=== PATIENT | male | born 1940 | race Two or more races ===

== ENCOUNTER 2017-03-18 17:10 | Inpatient (IN) | payer OTHER ==
[~2017-03-18] VITALS: Ht 162.6 cm; Wt 99.8 kg
[2017-03-18] VITALS (8 sets, daily range): BP systolic 97–156; BP diastolic 45–84
[2017-03-18] MEDS ORDERED: Azithromycin Inj IV ONE (17:19)
[2017-03-18] MEDS: Albuterol ud Inhalation HHN SCH ×3 (17:22→17:56)
[2017-03-18] MEDS ORDERED: ZOSYN 3.373.375 GM/1 IVPB (17:25)
[2017-03-18] MEDS ORDERED: ACETAMINOPHEN325 M1 ORAL (17:25)
[2017-03-18] MEDS ORDERED: DUONEB 0.5-3(2.53 ML HHN (17:25)
[2017-03-18] MEDS ORDERED: Vancomycin 1.5gm/D5W 300ml 325 ML IVPB ONE (17:30)
[2017-03-18] MEDS ORDERED: Ipratropium 0.02% Inh Soln 2.5ml UD HHN ONE (17:30)
[2017-03-18] MEDS ORDERED: cefTRIAXone 2 GM in NS 110 ML IV ONE (17:30)
[2017-03-18] MEDS ORDERED: Azithromycin 500 MG in NS 275 ML IV ONE (17:30)
[2017-03-18] MEDS ORDERED: Solu-MEDROL 125mg Inj IVP ONE (17:30)
--- NOTE | 2017-03-18 17:51 | Emergency Room Report ---
History of Present Illness General Chief Complaint: Dyspnea/Respdistress Source: Patient, EMS Present Illness HPI The patient presents with severe dyspnea. Paramedics were called. Patient has a history of asthma and COPD. He started breathing treatments and they heard wheezing in all lung fernández. He was begun on Zosyn this morning for treatment of pneumonia. Recent admission for dyspnea. Family was told consideration of pneumonia. No sore throat, NVD, dysuria, rashes. Minimal chest pain 2/10 R anterior chest. Denies calf tenderness. Apparently has been intubated once before. Allergies: Coded Allergies: No Known Allergies (Unverified , 03/18/17) Patient History Past Medical History: see triage record Social History: Denies: smoking Social History Narrative and with other family members Nursing Documentation-PMH Hx Asthma: Yes Hx COPD: Yes Hx Gastrointestinal Problems: Yes - GERD Review of Systems All Other Systems: negative except mentioned in HPI Physical Exam Vital Signs Date Time Temp Pulse Resp B/P Pulse Ox O2 Delivery O2 Flow Rate FiO2 03/18/17 17:06 97.0 102 22 156/84 94 Simple Mask 8.0 03/18/17 17:17 60 Sp02 EP Interpretation: reviewed, abnormal - interpreted as low by me General Appearance: alert, GCS 15, mild distress Head: normocephalic Eyes: bilateral eye PERRL, bilateral eye normal inspection ENT: moist mucus membranes Neck: supple Respiratory: wheezing - tight, expiration, inspiration Cardiovascular #1: regular rate, rhythm Cardiovascular #2: 2+ radial (R) Gastrointestinal: normal inspection, normal bowel sounds, non tender, no mass, non-distended Musculoskeletal: back normal, gait/station normal, normal range of motion Neurologic: alert, oriented x3, motor strength/tone normal, DTRs symmetric, sensory intact, cerebellar normal, normal gait Psychiatric: anxious Skin: normal inspection, warm/dry Procedures Critical Care Time Critical Care Time Total Critical Care Time: 30 min bedside evaluation and treatment excludes procedures (EKG). Reason for critical care: repeated evaluations for respiratory distress Possible complications: hypotension, hypertension, NE, shock, arrhythmias, metabolic acidosis, end organ damage, respiratory failure. Interventions: BIPAP, albuterol, solumedrol Course: Patient with resp distress with slight improvement in field with albuterol. Start BIPAP and breathing treatments. Evaluation for sepsis and start antibiotics. No fluid boluses. Improved on BIPAP and tx. Attempt off BIPAP not successful. ABG with hypoxia and mixed acidosis. Discussed with family. Discussed with admitting MD. Returned to BIPAP with improvement. Consultations: nursing staff, EMS, family Performed by: Dr. Morrell Tolerated well condition = serious Medical Decision Making Diagnostic Impression: Primary Impression: Respiratory distress Additional Impressions: Bilateral pulmonary infiltrates on chest x-ray Bronchospasm Mixed acidosis Hypoxia ER Course The patient presents with severe dyspnea. Differential includes acute myocardial infarction, CHF, COPD, pneumonia, exacerbation of asthma. Apparently analyzer began this morning. Evaluation here will include EKG, chest x-ray and labs. The patient is in respiratory distress and has severe bronchospasm. This was aggressively treated with albuterol Atrovent and Solu- Medrol. In addition to that I will receive triple antibiotics. His vital signs are stable and therefore the given IV hydration but not excessive use. The patient is improved with treatment however still has rales. Chest x-ray reveals diffuse significant interstitial infiltrates. Of significance is normal BNP. Will attempt off of BIPAP. ABG off BIPAP suggests need for continued pressure support. Consideration of intubation, but patient greatly improved. Patient improved. Admit [facility] Dr. Womack. Laboratory Tests Test 03/18/17 17:15 03/18/17 18:00 03/18/17 19:32 White Blood Count 20.3 K/UL (4.8-10.8) H Red Blood Count 3.76 M/UL (4.70-6.10) L Hemoglobin 13.1 G/DL (14.2-18.0) L Hematocrit 36.6 % (42.0-52.0) L Mean Corpuscular Volume 97 FL (80-99) Mean Corpuscular Hemoglobin 34.7 PG (27.0-31.0) H Mean Corpuscular Hemoglobin Concent 35.7 G/DL (32.0-36.0) Red Cell Distribution Width 12.1 % (11.6-14.8) Platelet Count 167 K/UL (150-450) Mean Platelet Volume 6.7 FL (6.5-10.1) Neutrophils (%) (Auto) % (45.0-75.0) Lymphocytes (%) (Auto) % (20.0-45.0) Monocytes (%) (Auto) % (1.0-10.0) Eosinophils (%) (Auto) % (0.0-3.0) Basophils (%) (Auto) % (0.0-2.0) Differential Total Cells Counted 100 Neutrophils % (Manual) 82 % (45-75) H Lymphocytes % (Manual) 4 % (20-45) L Monocytes % (Manual) 0 % (1-10) L Eosinophils % (Manual) 1 % (0-3) Basophils % (Manual) 0 % (0-2) Metamyelocytes % 1 % (0-0) H Myelocytes % 1 % (0-0) H Band Neutrophils 11 % (0-8) H Platelet Estimate Adequate Platelet Morphology Normal Red Blood Cell Morphology Normal Prothrombin Time 9.8 SEC (9.30-11.50) Prothrombin Time INR 1.0 (0.9-1.1) PTT 25 SEC (23-33) Sodium Level 134 mEQ/L (135-145) L Potassium Level 4.9 mEQ/L (3.4-4.9) Chloride Level 93 mEQ/L (98-107) L Carbon Dioxide Level 25 mEQ/L (20-30) Anion Gap 16 (5-15) H Blood Urea Nitrogen 14 mg/dL (7-23) Creatinine 1.0 mg/dL (0.7-1.2) Estimate Glomerular Filtration Rate mL/min (>60) Glucose Level 215 mg/dL (74-106) H Lactic Acid Level 1.80 mmol/L (0.66-2.22) Calcium Level 8.4 mg/dL (8.6-10.2) L Magnesium Level 2.0 mg/dL (1.7-2.5) Total Bilirubin 0.5 mg/dL (0.0-1.2) Aspartate Amino Transferase (AST) 29 U/L (5-40) Alanine Aminotransferase (ALT) 32 U/L (3-41) Alkaline Phosphatase 127 U/L (40-129) Total Creatine Kinase 34 U/L (38-174) L Troponin I < 0.30 ng/mL (<=0.30) Pro-B-Type Natriuretic Peptide 210 pg/mL (0-450) Total Protein 5.8 g/dL (6.6-8.7) L Albumin 2.2 g/dL (3.5-5.2) L Globulin 3.6 g/dL Albumin/Globulin Ratio 0.6 (1.0-2.7) L Urine Color Pale yellow Urine Appearance Clear Urine pH 7 (4.5-8.0) Urine Specific [place] 1.010 (1.005-1.035) Urine Protein 1+ (NEGATIVE) H Urine Glucose (UA) 2+ (NEGATIVE) H Urine Ketones Negative (NEGATIVE) Urine Occult Blood Negative (NEGATIVE) Urine Nitrite Negative (NEGATIVE) Urine Bilirubin Negative (NEGATIVE) Urine Urobilinogen Normal MG/DL (0.0-1.0) Urine Leukocyte Esterase Negative (NEGATIVE) Urine RBC 0 /HPF (0 - 0) Urine WBC 0-2 /HPF (0 - 0) Urine Squamous Epithelial Cells None /LPF (NONE/OCC) Urine Bacteria None /HPF (NONE) Arterial Blood pH 7.345 (7.350-7.450) Arterial Blood Partial Pressure CO2 46.5 mmHg (35.0-45.0) H Arterial Blood Partial Pressure O2 64.0 mmHg (75.0-100.0) L Arterial Blood HCO3 24.8 mmol/L (22.0-26.0) Arterial Blood Oxygen Saturation 81.0 % (92.0-98.0) L Arterial Blood Base Excess -1.2 Jarad Test Positive EKG Diagnostic Results Rate: tachycardiac ST Segments: no acute changes Rhythm Strip Diag. Results EP Interpretation: yes Rhythm: no PVC's, no ectopy, other - st Chest X-Ray Diagnostic Results EP Interpretation: Yes Findings: no pneumothorax, other - bilateral infiltrates Number of Views: 1 Last Vital Signs Date Time Temp Pulse Resp B/P Pulse Ox O2 Delivery O2 Flow Rate FiO2 03/18/17 21:11 102 28 95 Facial 70 03/18/17 21:00 154/59 03/18/17 20:24 97.0 03/18/17 19:30 10.0 Status: improved Disposition: ADMITTED INPATIENT Condition: Critical Clarence Morrell M.D. Mar 18, 2017 17:51
[2017-03-18 17:58] LABS: MEAN CORPUSCULAR HEMOGLOBIN 34.7 PG (27.0-31.0); MEAN CORPUSCULAR HGB CONC 35.7 G/DL (32.0-36.0); MEAN CORPUSCULAR VOLUME 97 FL (80-99); MEAN PLATELET VOLUME 6.7 FL (6.5-10.1); PLATELET COUNT 167 K/UL (150-450); RED BLOOD COUNT 3.76 M/UL (4.70-6.10); RED CELL DISTRIBUTION WIDTH 12.1 % (11.6-14.8); WHITE BLOOD COUNT 20.3 K/UL (4.8-10.8)
[2017-03-18 18:04] LABS: PROTHROMBIN TIME 9.8 SEC (9.30-11.50)
[2017-03-18 18:12] LABS: TROPONIN I < 0.30 ng/mL (<=0.30)
[2017-03-18 18:15] LABS: ALANINE AMINOTRANSFERASE 32 U/L (3-41); ALBUMIN/GLOBULIN RATIO 0.6 (1.0-2.7); ANION GAP 16 (5-15); ASPARTATE AMINO TRANSFERASE 29 U/L (5-40); CALCIUM 8.4 mg/dL (8.6-10.2); CARBON DIOXIDE 25 mEQ/L (20-30); CHLORIDE 93 mEQ/L (98-107); HEMOLYSIS 7; POTASSIUM 4.9 mEQ/L (3.4-4.9); SODIUM 134 mEQ/L (135-145); TOTAL PROTEIN 5.8 g/dL (6.6-8.7)
[2017-03-18 18:15] LABS: APPEARANCE,URINE CLEAR; KETONES,URINE NEGATIVE (NEGATIVE); LEUKOCYTE ESTERASE ,URINE NEGATIVE (NEGATIVE); NITRITE,URINE NEGATIVE (NEGATIVE); PH,URINE 7 (4.5-8.0); PROTEIN,URINE 1+ (NEGATIVE); UROBILINOGEN,URINE NORMAL MG/DL (0.0-1.0)
[2017-03-18 18:22] LABS: RBC,URINE 0 /HPF (0 - 0); WBC,URINE 0-2 /HPF (0 - 0)
[2017-03-18 18:32] LABS: BAND NEUTROPHILS % (MANUAL) 11 % (0-8); BASOPHILS % (MANUAL) 0 % (0-2); EOSINOPHILS % (MANUAL) 1 % (0-3); LYMPHOCYTES % (MANUAL) 4 % (20-45); METAMYELOCYTES % 1 % (0-0); MYELOCYTES % 1 % (0-0); NEUTROPHILS % (MANUAL) 82 % (45-75); PLATELET ESTIMATE ADEQUATE; PLATELET MORPHOLOGY NORMAL; TOTAL CELLS COUNTED 100
[2017-03-18] MEDS ORDERED: fentaNYL 100 mcg/2 mL IV ONE (19:45)
[2017-03-18 20:12] LABS: ABG BASE EXCESS -1.2; ABG PCO2 46.5 mmHg (35.0-45.0)
[2017-03-18 20:13] LABS: ABG ALLEN TEST POSITIVE
[2017-03-18] MEDS ORDERED: Nitroglycerin Subl 0.4mg tab (Bottle Of 25) SL PRN (20:30)
[2017-03-18] MEDS ORDERED: Morphine Sulfate 2mg/ml Inj IVP PRN (20:30)
[2017-03-18] MEDS ORDERED: Promethazine/Codeine 5ml UD ORAL PRN (20:30)
[2017-03-18] MEDS ORDERED: LORazepam Inj 2mg/ml 1ml IV PRN (20:30)
[2017-03-18] MEDS ORDERED: Ketorolac 30mg Inj IV PRN (20:30)
[2017-03-18] MEDS ORDERED: DuoNeb 0.5-3(2.5)mg/3ml neb HHN PRN (20:30)
[2017-03-18] MEDS: Heparin 5000 units/ml inj SUBQ SCH (21:22)
[2017-03-18] MEDS: Theophylline ER 100mg ORAL SCH (21:35)
[2017-03-18] MEDS ORDERED: Zosyn 3.375gm inj ONE (21:59)
[2017-03-18] MEDS ORDERED: Piperacillin/Tazobactam 2.25 GM in D5W 55 ML IV SCH (22:00)
[2017-03-18] MEDS: Zosyn 3.375gm q8h **Extended infusion IVPB SCH ×2 (22:13)
[2017-03-19] MEDS: Solu-MEDROL 125mg Inj IV SCH ×6 (01:14→23:18)
[2017-03-19 04:00] VITALS: BP 115/67
[2017-03-19] MEDS ORDERED: Zosyn 3.375gm inj ONE (05:29)
[2017-03-19] MEDS: Zosyn 3.375gm q8h **Extended infusion IVPB SCH ×6 (05:42→21:30)
[2017-03-19 08:00] VITALS: BP 129/77
--- NOTE | 2017-03-19 08:18 | History and Physical ---
History of Present Illness General Date patient seen: Mar 19, 2017 Time patient seen: 08:00 Reason for Hospitalization: Dyspnea/Respdistress Present Illness HPI 76 y/old patient with hx of COPD/asthma BIBA with severe dyspnea. Patient was wheezing He was started on breathing treatments in route He was begun on Zosyn this morning for treatment of pneumonia. Recent admission for dyspnea. patient with hx of heavy smoking for 20 yrs 1 pk/day admits to chest tightness, cough, minimally productive with greenish expectorate denies fevers, chills no sore throat, no n/v/d, no dysuria, no rashes. Minimal chest pain 2/10 R anterior chest. Denied calf tenderness. Hx of intubation in the past x1 Workup in ED revealed leukocytosis-20.3 patient was placed on VM 45% and ABG done after being on VM for 30 min- with evidence of severe hypoxemia and mild hypercapnia patient was placed on BiPAP with some improvement, CXR with bilateral infiltrates troponin negative ECG -SR, no ischemic changes started on loading dose of steroids, bronchodilator therapy via nebulizer provided patient was admitted to [facility] for further management Allergies: Coded Allergies: No Known Allergies (Unverified , 03/18/17) Medication History Scheduled Spnbkzhkreob-Qvmx-Xjwmtdme,Iso (Zosyn 3.375 Gm Pre Mix-Bag), 3.375 GM IVPB EVERY 6 HOURS, (Reported) Scheduled PRN Acetaminophen* (Acetaminophen 325MG Tablet*), 650 MG ORAL Q4H PRN for Fever/ Headache/Mild Pain, (Reported) Ipratropium/Albuterol Sulfate (DuoNeb 0.5-3(2.5)mg/3ml), 3 ML HHN EVERY 4 HOURS PRN for Shortness of Breath, (Reported) Patient History History Provided By: Patient Healthcare decision maker Resuscitation status Full Code Advanced Directive on File No Past Medical/Surgical History Past Medical/Surgical History: (1) Asthma (2) COPD (chronic obstructive pulmonary disease) (3) HTN (hypertension) Review of Systems Constitutional: Reports: weakness Eye: Reports: no symptoms ENT: Reports: no symptoms Respiratory: Reports: see HPI Cardiovascular: Reports: no symptoms, other - hx of HTN Gastrointestinal: Reports: no symptoms Genitourinary: Reports: no symptoms Musculoskeletal: Reports: no symptoms Skin: Reports: no symptoms Psychiatric: Reports: no symptoms Neurological: Reports: no symptoms Endocrine: Reports: no symptoms Hematologic/Lymphatic: Reports: no symptoms Physical Exam General Appearance: alert, obese, other - mild respiratory distress Lines, tubes and drains: peripheral HEENT: normocephalic, atraumatic, anicteric, mucous membranes moist, other - BiPAP on 10/24 80% Respiratory/Chest: no accessory muscle use, respiratory distress - mild , decreased breath sounds - throughout all lung fernández , expiratory wheezing - few scattered Cardiovascular/Chest: normal rate, regular rhythm - SR on tele Abdomen: normal bowel sounds, non tender - obese, soft Extremities: normal range of motion, non-tender, no calf tenderness, normal capillary refill Skin Exam: normal pigmentation, warm/dry Neurologic: no motor/sensory deficits, alert, oriented x 3, responsive Musculoskeletal: normal muscle bulk Last 24 Hour Vital Signs Date Time Temp Pulse Resp B/P Pulse Ox O2 Delivery O2 Flow Rate FiO2 03/19/17 05:05 88 19 95 Facial 80 03/19/17 04:00 84 03/19/17 04:00 97.0 80 18 115/67 100 Bi-pap 80 03/19/17 04:00 80 03/19/17 03:30 86 16 94 Full Face 80 03/19/17 01:30 90 15 97 Facial 80 03/19/17 01:00 10.0 90 03/19/17 00:37 92 03/18/17 23:30 92 21 99 Facial 90 03/18/17 23:27 97.0 89 20 106/51 100 Bi-pap 10.0 60 03/18/17 23:00 60 03/18/17 23:00 89 20 106/51 100 Bi-pap 60 03/18/17 22:00 88 18 98/45 100 Bi-pap 60 03/18/17 21:11 102 28 95 Facial 70 03/18/17 21:00 94 21 154/59 100 Bi-pap 60 03/18/17 20:30 98 21 101/56 99 Bi-pap 60 03/18/17 20:24 97.0 03/18/17 20:00 97.9 100 23 97/67 95 Bi-pap 60 03/18/17 19:30 93 10.0 45 03/18/17 19:30 93 10.0 45 03/18/17 19:00 13.0 03/18/17 19:00 105 34 106/64 93 Simple Mask 13.0 03/18/17 18:32 114 30 108/65 96 Bi-pap 60 03/18/17 18:05 113 28 98 Bi-pap 60 03/18/17 17:50 60 03/18/17 17:49 115 29 96 Bi-pap 60 03/18/17 17:49 116 29 96 Bi-pap 60 03/18/17 17:34 115 25 96 Bi-pap 60 03/18/17 17:34 115 25 96 Bi-pap 60 03/18/17 17:33 97.0 117 28 156/84 94 Bi-pap 60 03/18/17 17:33 117 28 Bi-pap 60 03/18/17 17:19 117 28 94 Bi-pap 60 03/18/17 17:18 118 28 Bi-pap 60 03/18/17 17:17 117 28 94 Facial 60 03/18/17 17:06 97.0 102 22 156/84 94 Simple Mask 8.0 Intake and Output 03/18/17 03/19/17 19:00 07:00 Intake Total 385 ml 470.5 ml Output Total 100 ml 600 ml Balance 285 ml -129.5 ml Intake IV Total 385 ml 470.5 ml Output Urine Total 100 ml 600 ml Laboratory Tests Test 03/18/17 17:15 03/18/17 18:00 03/18/17 19:32 White Blood Count 20.3 K/UL (4.8-10.8) H Red Blood Count 3.76 M/UL (4.70-6.10) L Hemoglobin 13.1 G/DL (14.2-18.0) L Hematocrit 36.6 % (42.0-52.0) L Mean Corpuscular Volume 97 FL (80-99) Mean Corpuscular Hemoglobin 34.7 PG (27.0-31.0) H Mean Corpuscular Hemoglobin Concent 35.7 G/DL (32.0-36.0) Red Cell Distribution Width 12.1 % (11.6-14.8) Platelet Count 167 K/UL (150-450) Mean Platelet Volume 6.7 FL (6.5-10.1) Neutrophils (%) (Auto) % (45.0-75.0) Lymphocytes (%) (Auto) % (20.0-45.0) Monocytes (%) (Auto) % (1.0-10.0) Eosinophils (%) (Auto) % (0.0-3.0) Basophils (%) (Auto) % (0.0-2.0) Differential Total Cells Counted 100 Neutrophils % (Manual) 82 % (45-75) H Lymphocytes % (Manual) 4 % (20-45) L Monocytes % (Manual) 0 % (1-10) L Eosinophils % (Manual) 1 % (0-3) Basophils % (Manual) 0 % (0-2) Metamyelocytes % 1 % (0-0) H Myelocytes % 1 % (0-0) H Band Neutrophils 11 % (0-8) H Platelet Estimate Adequate Platelet Morphology Normal Red Blood Cell Morphology Normal Prothrombin Time 9.8 SEC (9.30-11.50) Prothromb Time International Ratio 1.0 (0.9-1.1) Activated Partial Thromboplast Time 25 SEC (23-33) Sodium Level 134 mEQ/L (135-145) L Potassium Level 4.9 mEQ/L (3.4-4.9) Chloride Level 93 mEQ/L (98-107) L Carbon Dioxide Level 25 mEQ/L (20-30) Anion Gap 16 (5-15) H Blood Urea Nitrogen 14 mg/dL (7-23) Creatinine 1.0 mg/dL (0.7-1.2) Estimat Glomerular Filtration Rate mL/min (>60) Glucose Level 215 mg/dL (74-106) H Lactic Acid Level 1.80 mmol/L (0.66-2.22) Calcium Level 8.4 mg/dL (8.6-10.2) L Magnesium Level 2.0 mg/dL (1.7-2.5) Total Bilirubin 0.5 mg/dL (0.0-1.2) Aspartate Amino Transf (AST/SGOT) 29 U/L (5-40) Alanine Aminotransferase (ALT/SGPT) 32 U/L (3-41) Alkaline Phosphatase 127 U/L (40-129) Total Creatine Kinase 34 U/L (38-174) L Troponin I < 0.30 ng/mL (<=0.30) Pro-B-Type Natriuretic Peptide 210 pg/mL (0-450) Total Protein 5.8 g/dL (6.6-8.7) L Albumin 2.2 g/dL (3.5-5.2) L Globulin 3.6 g/dL Albumin/Globulin Ratio 0.6 (1.0-2.7) L Urine Color Pale yellow Urine Appearance Clear Urine pH 7 (4.5-8.0) Urine Specific [place] 1.010 (1.005-1.035) Urine Protein 1+ (NEGATIVE) H Urine Glucose (UA) 2+ (NEGATIVE) H Urine Ketones Negative (NEGATIVE) Urine Occult Blood Negative (NEGATIVE) Urine Nitrite Negative (NEGATIVE) Urine Bilirubin Negative (NEGATIVE) Urine Urobilinogen Normal MG/DL (0.0-1.0) Urine Leukocyte Esterase Negative (NEGATIVE) Urine RBC 0 /HPF (0 - 0) Urine WBC 0-2 /HPF (0 - 0) Urine Squamous Epithelial Cells None /LPF (NONE/OCC) Urine Bacteria None /HPF (NONE) Arterial Blood pH 7.345 (7.350-7.450) Arterial Blood Partial Pressure CO2 46.5 mmHg (35.0-45.0) H Arterial Blood Partial Pressure O2 64.0 mmHg (75.0-100.0) L Arterial Blood HCO3 24.8 mmol/L (22.0-26.0) Arterial Blood Oxygen Saturation 81.0 % (92.0-98.0) L Arterial Blood Base Excess -1.2 Jarad Test Positive Height (Feet): 5 Height (Inches): 4.00 Weight (Pounds): 220 Medications Current Medications Medications (Trade) Dose Ordered Sig/Gabe Route PRN Reason Start Time Stop Time Status Last Admin Dose Admin Albuterol/ Ipratropium (DuoNeb 0.5-3(2.5)mg/3ml) 3 ml Q4H PRN HHN DYSPNEA 03/18/17 20:30 03/23/17 20:29 Dextrose STAT PRN IV Hypoglycemia 03/18/17 20:30 04/17/17 20:29 Heparin Sodium (Porcine) (Heparin 5000 units/ml) 5,000 units EVERY 12 HOURS SUBQ 03/18/17 21:00 04/17/17 20:59 03/18/17 21:22 Ketorolac Tromethamine (Toradol 30mg) 30 mg Q8H PRN IV Moderate Pain (Pain Scale 4-6) 03/18/17 20:30 03/23/17 20:29 Lorazepam (Ativan 2mg/ml 1ml) 0.5 mg Q4H PRN IV For Anxiety 03/18/17 20:30 03/25/17 20:29 Methylprednisolone Sodium Succinate (Solu-MEDROL) 60 mg EVERY 6 HOURS IV 03/19/17 00:00 04/18/17 00:00 03/19/17 05:43 Morphine Sulfate (Morphine Sulfate) 2 mg Q4H PRN IVP Severe Pain (Pain Scale 7-10) 03/18/17 20:30 03/25/17 20:29 Nitroglycerin (Ntg) 0.4 mg Q5M X 3 DOSES PRN SL Prn Chest Pain 03/18/17 20:30 04/17/17 20:29 Ondansetron HCl (Zofran) 4 mg Q6H PRN IVP Nausea & Vomiting 03/18/17 20:30 04/17/17 20:29 Piperacillin Sod/ Tazobactam Sod/ Dextrose (Zosyn/D5W) 110 ml @ 27.5 mls/hr EVERY 8 HOURS IVPB 03/18/17 22:00 03/23/17 21:59 03/19/17 05:42 Promethazine HCl/ Codeine (Phenergan with Codeine) 5 ml Q6H PRN ORAL For Cough 03/18/17 20:30 04/17/17 20:29 Temazepam (Restoril) 15 mg HSPRN PRN ORAL Insomnia 03/18/17 21:00 03/25/17 20:59 Theophylline (Dale-Dur) 100 mg EVERY 12 HOURS ORAL 03/18/17 21:00 04/17/17 20:59 03/18/17 21:35 Assessment/Plan Assessment/Plan ASSESSMENT acute hypoxemic respiratory failure requiring BiPAP acute COPD exacerbation likely PNA hx of COPD/asthma hx of tobacco abuse HTN hyperglycemia PLAN OF CARE [facility] close monitoring may need intubation if no improvement stat ABG and titrate BiPAP settings as needed Fup with CXR IV steroids empiric abx sputum cx Theophylline antitussive prn bronchodilator therapy via [facility] ATC and prn addiction counselor to continue abstinence from smoking DVT prophylaxis currently normotensive and off any anti HTN meds, monitor BP closely check HgA1c, likely 2 to steroids vs real diabetes, may need coverage condition serious keep in [facility] case discussed and evaluated by supervising physician Mumtaz ([facility]),Jennifer MANN Mar 19, 2017 08:18
--- NOTE | 2017-03-19 09:21 | Infectious Diseases Prog Note ---
Assessment/Plan Assessment/Plan ID consult dictated # [id number] Subjective Allergies: Coded Allergies: No Known Allergies (Unverified , 03/18/17) Objective Vital Signs Last 24 Hour Vital Signs Date Time Temp Pulse Resp B/P Pulse Ox O2 Delivery O2 Flow Rate FiO2 03/19/17 09:18 88 28 96 Facial 80 03/19/17 06:39 88 28 96 Facial 80 03/19/17 05:05 88 19 95 Facial 80 03/19/17 04:00 84 03/19/17 04:00 97.0 80 18 115/67 100 Bi-pap 80 03/19/17 04:00 80 03/19/17 03:30 86 16 94 Full Face 80 03/19/17 01:30 90 15 97 Facial 80 03/19/17 01:00 10.0 90 03/19/17 00:37 92 03/18/17 23:30 92 21 99 Facial 90 03/18/17 23:27 97.0 89 20 106/51 100 Bi-pap 10.0 60 03/18/17 23:00 60 03/18/17 23:00 89 20 106/51 100 Bi-pap 60 03/18/17 22:00 88 18 98/45 100 Bi-pap 60 03/18/17 21:11 102 28 95 Facial 70 03/18/17 21:00 94 21 154/59 100 Bi-pap 60 03/18/17 20:30 98 21 101/56 99 Bi-pap 60 03/18/17 20:24 97.0 03/18/17 20:00 97.9 100 23 97/67 95 Bi-pap 60 03/18/17 19:30 93 10.0 45 03/18/17 19:30 93 10.0 45 03/18/17 19:00 13.0 03/18/17 19:00 105 34 106/64 93 Simple Mask 13.0 03/18/17 18:32 114 30 108/65 96 Bi-pap 60 03/18/17 18:05 113 28 98 Bi-pap 60 03/18/17 17:50 60 03/18/17 17:49 115 29 96 Bi-pap 60 03/18/17 17:49 116 29 96 Bi-pap 60 03/18/17 17:34 115 25 96 Bi-pap 60 03/18/17 17:34 115 25 96 Bi-pap 60 03/18/17 17:33 97.0 117 28 156/84 94 Bi-pap 60 03/18/17 17:33 117 28 Bi-pap 60 03/18/17 17:19 117 28 94 Bi-pap 60 03/18/17 17:18 118 28 Bi-pap 60 03/18/17 17:17 117 28 94 Facial 60 03/18/17 17:06 97.0 102 22 156/84 94 Simple Mask 8.0 Height (Feet): 5 Height (Inches): 4.00 Weight (Pounds): 220 Laboratory Tests Test 03/18/17 17:15 03/18/17 18:00 03/18/17 19:32 White Blood Count 20.3 K/UL (4.8-10.8) H Red Blood Count 3.76 M/UL (4.70-6.10) L Hemoglobin 13.1 G/DL (14.2-18.0) L Hematocrit 36.6 % (42.0-52.0) L Mean Corpuscular Volume 97 FL (80-99) Mean Corpuscular Hemoglobin 34.7 PG (27.0-31.0) H Mean Corpuscular Hemoglobin Concent 35.7 G/DL (32.0-36.0) Red Cell Distribution Width 12.1 % (11.6-14.8) Platelet Count 167 K/UL (150-450) Mean Platelet Volume 6.7 FL (6.5-10.1) Neutrophils (%) (Auto) % (45.0-75.0) Lymphocytes (%) (Auto) % (20.0-45.0) Monocytes (%) (Auto) % (1.0-10.0) Eosinophils (%) (Auto) % (0.0-3.0) Basophils (%) (Auto) % (0.0-2.0) Differential Total Cells Counted 100 Neutrophils % (Manual) 82 % (45-75) H Lymphocytes % (Manual) 4 % (20-45) L Monocytes % (Manual) 0 % (1-10) L Eosinophils % (Manual) 1 % (0-3) Basophils % (Manual) 0 % (0-2) Metamyelocytes % 1 % (0-0) H Myelocytes % 1 % (0-0) H Band Neutrophils 11 % (0-8) H Platelet Estimate Adequate Platelet Morphology Normal Red Blood Cell Morphology Normal Prothrombin Time 9.8 SEC (9.30-11.50) Prothromb Time International Ratio 1.0 (0.9-1.1) Activated Partial Thromboplast Time 25 SEC (23-33) Sodium Level 134 mEQ/L (135-145) L Potassium Level 4.9 mEQ/L (3.4-4.9) Chloride Level 93 mEQ/L (98-107) L Carbon Dioxide Level 25 mEQ/L (20-30) Anion Gap 16 (5-15) H Blood Urea Nitrogen 14 mg/dL (7-23) Creatinine 1.0 mg/dL (0.7-1.2) Estimat Glomerular Filtration Rate mL/min (>60) Glucose Level 215 mg/dL (74-106) H Lactic Acid Level 1.80 mmol/L (0.66-2.22) Calcium Level 8.4 mg/dL (8.6-10.2) L Magnesium Level 2.0 mg/dL (1.7-2.5) Total Bilirubin 0.5 mg/dL (0.0-1.2) Aspartate Amino Transf (AST/SGOT) 29 U/L (5-40) Alanine Aminotransferase (ALT/SGPT) 32 U/L (3-41) Alkaline Phosphatase 127 U/L (40-129) Total Creatine Kinase 34 U/L (38-174) L Troponin I < 0.30 ng/mL (<=0.30) Pro-B-Type Natriuretic Peptide 210 pg/mL (0-450) Total Protein 5.8 g/dL (6.6-8.7) L Albumin 2.2 g/dL (3.5-5.2) L Globulin 3.6 g/dL Albumin/Globulin Ratio 0.6 (1.0-2.7) L Urine Color Pale yellow Urine Appearance Clear Urine pH 7 (4.5-8.0) Urine Specific [place] 1.010 (1.005-1.035) Urine Protein 1+ (NEGATIVE) H Urine Glucose (UA) 2+ (NEGATIVE) H Urine Ketones Negative (NEGATIVE) Urine Occult Blood Negative (NEGATIVE) Urine Nitrite Negative (NEGATIVE) Urine Bilirubin Negative (NEGATIVE) Urine Urobilinogen Normal MG/DL (0.0-1.0) Urine Leukocyte Esterase Negative (NEGATIVE) Urine RBC 0 /HPF (0 - 0) Urine WBC 0-2 /HPF (0 - 0) Urine Squamous Epithelial Cells None /LPF (NONE/OCC) Urine Bacteria None /HPF (NONE) Arterial Blood pH 7.345 (7.350-7.450) Arterial Blood Partial Pressure CO2 46.5 mmHg (35.0-45.0) H Arterial Blood Partial Pressure O2 64.0 mmHg (75.0-100.0) L Arterial Blood HCO3 24.8 mmol/L (22.0-26.0) Arterial Blood Oxygen Saturation 81.0 % (92.0-98.0) L Arterial Blood Base Excess -1.2 Jarad Test Positive Current Medications Medications (Trade) Dose Ordered Sig/Gabe Route PRN Reason Start Time Stop Time Status Last Admin Dose Admin Albuterol/ Ipratropium (DuoNeb 0.5-3(2.5)mg/3ml) 3 ml Q4H PRN HHN DYSPNEA 03/18/17 20:30 03/23/17 20:29 Dextrose STAT PRN IV Hypoglycemia 03/18/17 20:30 04/17/17 20:29 Heparin Sodium (Porcine) (Heparin 5000 units/ml) 5,000 units EVERY 12 HOURS SUBQ 03/18/17 21:00 04/17/17 20:59 03/18/17 21:22 Ketorolac Tromethamine (Toradol 30mg) 30 mg Q8H PRN IV Moderate Pain (Pain Scale 4-6) 03/18/17 20:30 03/23/17 20:29 Lorazepam (Ativan 2mg/ml 1ml) 0.5 mg Q4H PRN IV For Anxiety 03/18/17 20:30 03/25/17 20:29 Methylprednisolone Sodium Succinate (Solu-MEDROL) 60 mg EVERY 6 HOURS IV 03/19/17 00:00 04/18/17 00:00 03/19/17 05:43 Morphine Sulfate (Morphine Sulfate) 2 mg Q4H PRN IVP Severe Pain (Pain Scale 7-10) 03/18/17 20:30 03/25/17 20:29 Nitroglycerin (Ntg) 0.4 mg Q5M X 3 DOSES PRN SL Prn Chest Pain 03/18/17 20:30 04/17/17 20:29 Ondansetron HCl (Zofran) 4 mg Q6H PRN IVP Nausea & Vomiting 03/18/17 20:30 04/17/17 20:29 Piperacillin Sod/ Tazobactam Sod/ Dextrose (Zosyn/D5W) 110 ml @ 27.5 mls/hr EVERY 8 HOURS IVPB 03/18/17 22:00 03/23/17 21:59 03/19/17 05:42 Promethazine HCl/ Codeine (Phenergan with Codeine) 5 ml Q6H PRN ORAL For Cough 03/18/17 20:30 04/17/17 20:29 Temazepam (Restoril) 15 mg HSPRN PRN ORAL Insomnia 03/18/17 21:00 03/25/17 20:59 Theophylline (Dale-Dur) 100 mg EVERY 12 HOURS ORAL 03/18/17 21:00 04/17/17 20:59 03/18/17 21:35 DARIELA ALMANZAR Mar 19, 2017 09:21
--- NOTE | 2017-03-19 09:32 | Diagnostic Imaging Report ---
Indications: DYSPNEA Technique: Portable AP chest Findings: Comparison: None Mixed interstitial and alveolar opacities are present throughout both lungs, left lung more severely affected. This obscures much of the normal anatomy including most of the cardiomediastinal silhouette and pulmonary vasculature. No definite pleural abnormalities demonstrated. Aortic arch calcified. IMPRESSION: Extensive bilateral pulmonary parenchymal mixed interstitial and airspace disease, nonspecific. Diagnostic possibilities include cardiogenic versus noncardiogenic pulmonary edema, diffuse pneumonitis, multifocal parenchymal hemorrhage, metastatic neoplasm, chronic interstitial disease/fibrosis, or a combination of any of these. Aortosclerosis
[2017-03-19 10:03] LABS: ABG BASE EXCESS 0.3; ABG PCO2 51.4 mmHg (35.0-45.0)
[2017-03-19 10:04] LABS: ABG ALLEN TEST POSITIVE
[2017-03-19] MEDS: Theophylline ER 100mg ORAL SCH ×2 (10:09→21:29)
[2017-03-19] MEDS: Heparin 5000 units/ml inj SUBQ SCH ×2 (10:13→21:31)
[2017-03-19] MEDS: Azithromycin 250mg tab ORAL SCH (10:13)
[2017-03-19 12:00] VITALS: BP 135/84
[2017-03-19] MEDS: DuoNeb 0.5-3(2.5)mg/3ml neb HHN SCH ×2 (14:00→18:56)
--- NOTE | 2017-03-19 14:20 | Cardiology Report ---
APPROVED REPORT EKG Measurement Heart [id number] Sinus tachycardia Moderate voltage criteria for LVH, may be normal variant Inferior infarct, age undetermined Abnormal ECG
[2017-03-19 16:00] VITALS: BP 139/79
[2017-03-19 20:00] VITALS: BP 141/86
--- NOTE | 2017-03-19 21:48 | Consultation ---
DATE OF CONSULTATION: 03/19/2017 INFECTIOUS DISEASE CONSULTATION This consult is for coverage of Dr. Villaseñor. PRIMARY ATTENDING PHYSICIAN: Gaby Womack M.D. REASON FOR CONSULT: Pneumonia. HISTORY OF PRESENT ILLNESS: The patient is a 76-year-old male admitted yesterday from home because of respiratory distress and severe shortness of breath. The patient has a history of COPD and asthma. MEDICATIONS: Prednisone, Zosyn, heparin, temazepam, theophylline, DuoNeb inhaler, morphine sulfate, nitroglycerin, and promethazine. He will get dose of vancomycin, Zithromax, and ceftriaxone in the ER. ALLERGIES: No known drug allergy. SOCIAL HISTORY: He lives at home. Remote history of smoking. . No sick contacts. REVIEW OF SYSTEMS: He have shortness of breath and productive cough. No fever. No runny nose. No sore throat. No nausea. No vomiting. PHYSICAL EXAMINATION: VITAL SIGNS: Temperature 97 degrees, pulse 88, and blood pressure 115/67. GENERAL APPEARANCE: The patient has some respiratory distress that is mild. He is obese. HEAD AND NECK: The patient is on BiPAP. [place] conjunctiva. HEART: Regular. LUNGS: Have some coarse sounds. ABDOMEN: Obese, soft and nontender. EXTREMITIES: Have no edema. NEUROLOGIC: Awake, alert and oriented x3. No focal weakness. LABORATORY AND DIAGNOSTIC DATA: WBC 20.3, hemoglobin 13.1, hematocrit 36.6, and platelets 167,000. Sodium 134, potassium 4.9, chloride 93, bicarbonate 25, BUN 14, creatinine 1 and glucose 215. Albumin is 2.2. Blood gas showed pH of 7.345, pCO2 46.5, and pO2 is 64. O2 saturation is 81%. Chest x-ray showed bilateral patchy pneumonia. IMPRESSION: 1. Pneumonia. 2. Hypoxemic respiratory failure. 3. Chronic obstructive pulmonary disease exacerbation. 4. Morbid obesity. RECOMMENDATION: Continue with Zosyn. Add Zithromax. Sent for urine for legionella antigen. We will follow up blood cultures. I thank Dr. Womack for involving me in the care of this patient. Brent Harding M.D. DR: JASWANT JOB#: [id number] CC:
[2017-03-19 23:55] VITALS: BP 110/70
[2017-03-20] VITALS (8 sets, daily range): BP systolic 128–135; BP diastolic 74–83
[2017-03-20] MEDS: DuoNeb 0.5-3(2.5)mg/3ml neb HHN SCH ×4 (00:51→18:43)
[2017-03-20 05:04] LABS: MEAN CORPUSCULAR HEMOGLOBIN 32.7 PG (27.0-31.0); MEAN CORPUSCULAR HGB CONC 32.8 G/DL (32.0-36.0); MEAN CORPUSCULAR VOLUME 100 FL (80-99); PLATELET COUNT 163 K/UL (150-450); RED BLOOD COUNT 3.24 M/UL (4.70-6.10); RED CELL DISTRIBUTION WIDTH 12.6 % (11.6-14.8); WHITE BLOOD COUNT 12.4 K/UL (4.8-10.8)
[2017-03-20 05:21] LABS: ANION GAP 18 (5-15); CARBON DIOXIDE 20 mEQ/L (20-30); CHLORIDE 90 mEQ/L (98-107); CREATININE 3.7 mg/dL (0.7-1.2); HEMOLYSIS 10; POTASSIUM 5.7 mEQ/L (3.4-4.9); SODIUM 128 mEQ/L (135-145)
[2017-03-20] MEDS: Zosyn 3.375gm q8h **Extended infusion IVPB SCH ×2 (05:26)
[2017-03-20] MEDS: Solu-MEDROL 125mg Inj IV SCH (05:26)
[2017-03-20] MEDS: Theophylline ER 100mg ORAL SCH ×2 (08:53→20:35)
[2017-03-20] MEDS: Heparin 5000 units/ml inj SUBQ SCH ×2 (08:54→20:41)
[2017-03-20] MEDS: Azithromycin 250mg tab ORAL SCH (10:14)
[2017-03-20 10:22] LABS: ABG ALLEN TEST POSITIVE; ABG BASE EXCESS -3.9; ABG PCO2 40.9 mmHg (35.0-45.0)
--- NOTE | 2017-03-20 11:40 | Diagnostic Imaging Report ---
Indication: SOB Technique: One view of the chest Comparison: 03/18/2017 Findings: There is extensive diffuse bilateral dense consolidation. The heart is obscured. The costophrenic angles are visualized, no definite pleural fluid Impression: Unchanged, over 2 days, findings as above.
--- NOTE | 2017-03-20 11:50 | Infectious Diseases Prog Note ---
Assessment/Plan Assessment/Plan A: The patient is a 76-year-old male leukocytosis Pneumonia Chest x-ray showed bilateral patchy pneumonia COPD and asthma exacerbation ex-smoker Morbid obesity P: cont pt on Zithro and Zosyn d# 3 / 7 Monitor CBC Monitor BMP Monitor CXray Monitor Cultures ( Bl, Ur , Sp ) Subjective Constitutional: Denies: anorexia, chills, drenching sweats, fatigue, fever, no symptoms, other Allergies: Coded Allergies: No Known Allergies (Unverified , 03/18/17) Objective Vital Signs Last 24 Hour Vital Signs Date Time Temp Pulse Resp B/P Pulse Ox O2 Delivery O2 Flow Rate FiO2 03/20/17 10:53 84 16 96 Facial 80 03/20/17 09:02 82 16 98 Facial 60 03/20/17 08:00 80 03/20/17 08:00 84 03/20/17 08:00 97.5 85 20 130/76 92 Bi-pap 80 03/20/17 06:52 101 20 98 Bi-pap 70 03/20/17 06:42 86 18 98 Bi-pap 70 03/20/17 06:42 86 18 98 Facial 70 03/20/17 05:18 90 16 98 Facial 80 03/20/17 04:00 97.5 80 21 128/75 98 Bi-pap 80 03/20/17 04:00 80 03/20/17 04:00 80 03/20/17 02:43 88 21 98 Facial 80 03/20/17 01:18 103 24 97 Bi-pap 80 03/20/17 00:53 89 20 98 Facial 80 03/20/17 00:51 103 24 96 Bi-pap 80 03/20/17 00:00 80 03/20/17 00:00 92 03/19/17 23:55 97.9 91 24 110/70 98 Bi-pap 03/19/17 23:15 92 26 98 Facial 80 03/19/17 20:33 94 27 98 Facial 80 03/19/17 20:00 80 03/19/17 20:00 97.9 100 20 141/86 100 Bi-pap 03/19/17 20:00 100 03/19/17 19:08 102 26 97 Bi-pap 80 03/19/17 18:56 102 29 97 Facial 80 03/19/17 18:56 102 29 97 Bi-pap 80 03/19/17 17:05 85 33 96 Facial 80 03/19/17 16:01 87 03/19/17 16:01 80 03/19/17 16:00 97.7 98 20 139/79 100 Bi-pap 80 03/19/17 14:53 87 30 97 Facial 80 03/19/17 13:01 80 28 97 Facial 80 03/19/17 12:00 80 03/19/17 12:00 90 03/19/17 12:00 97.0 92 26 135/84 100 Bi-pap 80 Height (Feet): 5 Height (Inches): 4.00 Weight (Pounds): 220 Respiratory/Chest: no respiratory distress Cardiovascular: regular rhythm Abdomen: non distended Microbiology Date/Time Source Procedure Growth Status 03/18/17 17:30 Blood Blood Culture - Preliminary NO GROWTH AFTER 24 HOURS Resulted 03/18/17 17:15 Blood Blood Culture - Preliminary NO GROWTH AFTER 24 HOURS Resulted Laboratory Tests Test 03/20/17 03:25 03/20/17 09:11 White Blood Count 12.4 K/UL (4.8-10.8) H Red Blood Count 3.24 M/UL (4.70-6.10) L Hemoglobin 10.6 G/DL (14.2-18.0) L Hematocrit 32.3 % (42.0-52.0) L Mean Corpuscular Volume 100 FL (80-99) H Mean Corpuscular Hemoglobin 32.7 PG (27.0-31.0) H Mean Corpuscular Hemoglobin Concent 32.8 G/DL (32.0-36.0) Red Cell Distribution Width 12.6 % (11.6-14.8) Platelet Count 163 K/UL (150-450) Mean Platelet Volume 7.0 FL (6.5-10.1) Neutrophils (%) (Auto) % (45.0-75.0) Lymphocytes (%) (Auto) % (20.0-45.0) Monocytes (%) (Auto) % (1.0-10.0) Eosinophils (%) (Auto) % (0.0-3.0) Basophils (%) (Auto) % (0.0-2.0) Sodium Level 128 mEQ/L (135-145) L Potassium Level 5.7 mEQ/L (3.4-4.9) H Chloride Level 90 mEQ/L (98-107) L Carbon Dioxide Level 20 mEQ/L (20-30) Anion Gap 18 (5-15) H Blood Urea Nitrogen 59 mg/dL (7-23) #H Creatinine 3.7 mg/dL (0.7-1.2) #H Estimat Glomerular Filtration Rate mL/min (>60) Glucose Level 527 mg/dL (74-106) #*H Hemoglobin A1c 7.4 % (< 6.0) H Calcium Level 8.0 mg/dL (8.6-10.2) L Arterial Blood pH 7.340 (7.350-7.450) Arterial Blood Partial Pressure CO2 40.9 mmHg (35.0-45.0) Arterial Blood Partial Pressure O2 63.4 mmHg (75.0-100.0) L Arterial Blood HCO3 21.6 mmol/L (22.0-26.0) L Arterial Blood Oxygen Saturation 93.1 % (92.0-98.0) Arterial Blood Base Excess -3.9 Jarad Test Positive Current Medications Medications (Trade) Dose Ordered Sig/Gabe Route PRN Reason Start Time Stop Time Status Last Admin Dose Admin Albuterol/ Ipratropium (DuoNeb 0.5-3(2.5)mg/3ml) 3 ml Q4H PRN HHN DYSPNEA 03/18/17 20:30 03/23/17 20:29 Albuterol/ Ipratropium (DuoNeb 0.5-3(2.5)mg/3ml) 3 ml Q6HRT HHN 03/19/17 13:00 03/24/17 12:59 03/20/17 06:42 Azithromycin (Zithromax) 500 mg Q24H ORAL 03/19/17 10:00 03/26/17 09:59 03/20/17 10:14 Dextrose STAT PRN IV Hypoglycemia 03/18/17 20:30 04/17/17 20:29 Heparin Sodium (Porcine) (Heparin 5000 units/ml) 5,000 units EVERY 12 HOURS SUBQ 03/18/17 21:00 04/17/17 20:59 03/20/17 08:54 Insulin Aspart (NovoLOG) BEFORE MEALS AND HS SUBQ 03/20/17 11:30 04/19/17 11:29 Ketorolac Tromethamine (Toradol 30mg) 30 mg Q8H PRN IV Moderate Pain (Pain Scale 4-6) 03/18/17 20:30 03/23/17 20:29 Lorazepam (Ativan 2mg/ml 1ml) 0.5 mg Q4H PRN IV For Anxiety 03/18/17 20:30 03/25/17 20:29 Methylprednisolone Sodium Succinate (Solu-MEDROL) 60 mg EVERY 12 HOURS IV 03/20/17 21:00 04/19/17 20:59 Morphine Sulfate (Morphine Sulfate) 2 mg Q4H PRN IVP Severe Pain (Pain Scale 7-10) 03/18/17 20:30 03/25/17 20:29 Nitroglycerin (Ntg) 0.4 mg Q5M X 3 DOSES PRN SL Prn Chest Pain 03/18/17 20:30 04/17/17 20:29 Ondansetron HCl (Zofran) 4 mg Q6H PRN IVP Nausea & Vomiting 03/18/17 20:30 04/17/17 20:29 03/19/17 10:10 Piperacillin Sod/ Tazobactam Sod/ Dextrose (Zosyn/D5W) 110 ml @ 27.5 mls/hr EVERY 8 HOURS IVPB 03/18/17 22:00 03/23/17 21:59 03/20/17 05:26 Promethazine HCl/ Codeine (Phenergan with Codeine) 5 ml Q6H PRN ORAL For Cough 03/18/17 20:30 04/17/17 20:29 Temazepam (Restoril) 15 mg HSPRN PRN ORAL Insomnia 03/18/17 21:00 03/25/17 20:59 03/19/17 21:46 Theophylline (Dale-Dur) 100 mg EVERY 12 HOURS ORAL 03/18/17 21:00 04/17/17 20:59 03/20/17 08:53 KEILA TILLMAN M.D. March 20, 2017 11:50
[2017-03-20] MEDS: NovoLOG Insulin Flexpen SUBQ SCH ×3 (12:15→20:43)
--- NOTE | 2017-03-20 12:25 | Pulmonology Progress Note ---
Assessment/Plan Problems: (1) Acute respiratory failure (2) Bilateral pneumonia (3) ATN (acute tubular necrosis) (4) HTN (hypertension) (5) COPD (chronic obstructive pulmonary disease) Assessment/Plan titrate bipa IV fluids renal work up awaiting culture result IV abx dvt prophylaxis Subjective ROS Limited/Unobtainable: No Interval Events: on BIPAP, awake Allergies: Coded Allergies: No Known Allergies (Unverified , 03/18/17) Objective Last 24 Hour Vital Signs Date Time Temp Pulse Resp B/P Pulse Ox O2 Delivery O2 Flow Rate FiO2 03/20/17 12:00 80 03/20/17 10:53 84 16 96 Facial 80 03/20/17 09:02 82 16 98 Facial 60 03/20/17 08:00 80 03/20/17 08:00 84 03/20/17 08:00 97.5 85 20 130/76 92 Bi-pap 80 03/20/17 06:52 101 20 98 Bi-pap 70 03/20/17 06:42 86 18 98 Bi-pap 70 03/20/17 06:42 86 18 98 Facial 70 03/20/17 05:18 90 16 98 Facial 80 03/20/17 04:00 97.5 80 21 128/75 98 Bi-pap 80 03/20/17 04:00 80 03/20/17 04:00 80 03/20/17 02:43 88 21 98 Facial 80 03/20/17 01:18 103 24 97 Bi-pap 80 03/20/17 00:53 89 20 98 Facial 80 03/20/17 00:51 103 24 96 Bi-pap 80 03/20/17 00:00 80 03/20/17 00:00 92 03/19/17 23:55 97.9 91 24 110/70 98 Bi-pap 03/19/17 23:15 92 26 98 Facial 80 03/19/17 20:33 94 27 98 Facial 80 03/19/17 20:00 80 03/19/17 20:00 97.9 100 20 141/86 100 Bi-pap 03/19/17 20:00 100 03/19/17 19:08 102 26 97 Bi-pap 80 03/19/17 18:56 102 29 97 Facial 80 03/19/17 18:56 102 29 97 Bi-pap 80 03/19/17 17:05 85 33 96 Facial 80 03/19/17 16:01 87 03/19/17 16:01 80 03/19/17 16:00 97.7 98 20 139/79 100 Bi-pap 80 03/19/17 14:53 87 30 97 Facial 80 03/19/17 13:01 80 28 97 Facial 80 Intake and Output 03/19/17 03/20/17 19:00 07:00 Intake Total 110.0 ml 151.5 ml Output Total 400 ml 420 ml Balance -290.0 ml -268.5 ml Intake IV Total 110.0 ml 151.5 ml Output Urine Total 400 ml 420 ml General Appearance: WD/WN HEENT: normocephalic, atraumatic Respiratory/Chest: chest wall non-tender, decreased breath sounds, accessory muscle use Cardiovascular: normal peripheral pulses, normal rate Abdomen: normal bowel sounds, soft, non tender Genitourinary: normal external genitalia Extremities: no cyanosis Neurologic/Psychiatric: front worker II-XII grossly normal, no motor/sensory deficits Microbiology Date/Time Source Procedure Growth Status 03/18/17 17:30 Blood Blood Culture - Preliminary NO GROWTH AFTER 24 HOURS Resulted 03/18/17 17:15 Blood Blood Culture - Preliminary NO GROWTH AFTER 24 HOURS Resulted Laboratory Tests 03/20/17 03:25: White Blood Count 12.4H, Red Blood Count 3.24L, Hemoglobin 10.6L, Hematocrit 32.3L, Mean Corpuscular Volume 100H, Mean Corpuscular Hemoglobin 32.7H, Mean Corpuscular Hemoglobin Concent 32.8, Red Cell Distribution Width 12.6, Platelet Count 163, Mean Platelet Volume 7.0, Neutrophils (%) (Auto) , Lymphocytes (%) ( Auto) , Monocytes (%) (Auto) , Eosinophils (%) (Auto) , Basophils (%) (Auto) , Sodium Level 128L, Potassium Level 5.7H, Chloride Level 90L, Carbon Dioxide Level 20, Anion Gap 18H, Blood Urea Nitrogen 59#H, Creatinine 3.7#H, Estimat Glomerular Filtration Rate , Glucose Level 527#*H, Hemoglobin A1c 7.4H, Calcium Level 8.0L 03/20/17 09:11: Arterial Blood pH 7.340L, Arterial Blood Partial Pressure CO2 40.9, Arterial Blood Partial Pressure O2 63.4L, Arterial Blood HCO3 21.6L, Arterial Blood Oxygen Saturation 93.1, Arterial Blood Base Excess -3.9, Jarad Test Positive Current Medications Medications (Trade) Dose Ordered Sig/Gabe Route PRN Reason Start Time Stop Time Status Last Admin Dose Admin Albuterol/ Ipratropium (DuoNeb 0.5-3(2.5)mg/3ml) 3 ml Q4H PRN HHN DYSPNEA 03/18/17 20:30 03/23/17 20:29 Albuterol/ Ipratropium (DuoNeb 0.5-3(2.5)mg/3ml) 3 ml Q6HRT HHN 03/19/17 13:00 03/24/17 12:59 03/20/17 06:42 Azithromycin (Zithromax) 500 mg Q24H ORAL 03/19/17 10:00 03/26/17 09:59 03/20/17 10:14 Dextrose STAT PRN IV Hypoglycemia 03/18/17 20:30 04/17/17 20:29 Heparin Sodium (Porcine) (Heparin 5000 units/ml) 5,000 units EVERY 12 HOURS SUBQ 03/18/17 21:00 04/17/17 20:59 03/20/17 08:54 Insulin Aspart (NovoLOG) BEFORE MEALS AND HS SUBQ 03/20/17 11:30 04/19/17 11:29 03/20/17 12:15 Lorazepam (Ativan 2mg/ml 1ml) 0.5 mg Q4H PRN IV For Anxiety 03/18/17 20:30 03/25/17 20:29 Morphine Sulfate (Morphine Sulfate) 2 mg Q4H PRN IVP Severe Pain (Pain Scale 7-10) 03/18/17 20:30 03/25/17 20:29 Ondansetron HCl (Zofran) 4 mg Q6H PRN IVP Nausea & Vomiting 03/18/17 20:30 04/17/17 20:29 03/19/17 10:10 Piperacillin Sod/ Tazobactam Sod/ Dextrose (Zosyn/D5W) 110 ml @ 27.5 mls/hr EVERY 8 HOURS IVPB 03/18/17 22:00 03/23/17 21:59 03/20/17 05:26 Promethazine HCl/ Codeine (Phenergan with Codeine) 5 ml Q6H PRN ORAL For Cough 03/18/17 20:30 04/17/17 20:29 Temazepam (Restoril) 15 mg HSPRN PRN ORAL Insomnia 03/18/17 21:00 03/25/17 20:59 03/19/17 21:46 Theophylline (Dale-Dur) 100 mg EVERY 12 HOURS ORAL 03/18/17 21:00 04/17/17 20:59 03/20/17 08:53 NADINE VILLANUEVA March 20, 2017 12:25
[2017-03-20 13:25] LABS: ALANINE AMINOTRANSFERASE 32 U/L (3-41); ALBUMIN/GLOBULIN RATIO 0.5 (1.0-2.7); ANION GAP 21 (5-15); ASPARTATE AMINO TRANSFERASE 26 U/L (5-40); CARBON DIOXIDE 20 mEQ/L (20-30); CHLORIDE 88 mEQ/L (98-107); CREATININE 4.3 mg/dL (0.7-1.2); HEMOLYSIS 1; MAGNESIUM 2.8 mg/dL (1.7-2.5); PHOSPHORUS 6.4 mg/dL (2.5-4.8); POTASSIUM 5.7 mEQ/L (3.4-4.9); SODIUM 129 mEQ/L (135-145); TOTAL PROTEIN 5.9 g/dL (6.6-8.7); URIC ACID 7.7 mg/dL (3.0-7.5)
[2017-03-20] MEDS ORDERED: Vancomycin 1.5 GM in D5W 325 ML IVPB ONE (15:30)
[2017-03-20 15:56] LABS: APPEARANCE,URINE CLEAR; KETONES,URINE NEGATIVE (NEGATIVE); LEUKOCYTE ESTERASE ,URINE NEGATIVE (NEGATIVE); NITRITE,URINE NEGATIVE (NEGATIVE); PH,URINE 5 (4.5-8.0); PROTEIN,URINE 2+ (NEGATIVE); UROBILINOGEN,URINE NORMAL MG/DL (0.0-1.0)
[2017-03-20 16:36] LABS: ABG BASE EXCESS -4.2; ABG PCO2 44.1 mmHg (35.0-45.0)
[2017-03-20 16:37] LABS: ABG ALLEN TEST POSITIVE
[2017-03-20 16:43] LABS: BACTERIA,URINE FEW /HPF; WBC,URINE 0-2 /HPF (0 - 0)
[2017-03-20] MEDS: Zosyn 3.375gm q12h **Extended infusion IVPB SCH ×2 (20:35)
[2017-03-20] MEDS ORDERED: Solu-MEDROL 125mg Inj IV SCH (21:00)
[2017-03-20] MEDS ORDERED: Zosyn 3.375gm q8h **Extended infusion IVPB SCH ×2 (21:00)
[2017-03-21] VITALS: BP 126/72
[2017-03-21] MEDS: DuoNeb 0.5-3(2.5)mg/3ml neb HHN SCH ×3 (00:40→13:01)
[2017-03-21 04:00] VITALS: BP 135/76
[2017-03-21 04:50] LABS: MEAN CORPUSCULAR HEMOGLOBIN 32.1 PG (27.0-31.0); MEAN CORPUSCULAR HGB CONC 33.5 G/DL (32.0-36.0); MEAN CORPUSCULAR VOLUME 96 FL (80-99); PLATELET COUNT 178 K/UL (150-450); RED BLOOD COUNT 3.42 M/UL (4.70-6.10); RED CELL DISTRIBUTION WIDTH 12.3 % (11.6-14.8); WHITE BLOOD COUNT 8.7 K/UL (4.8-10.8)
[2017-03-21 05:08] LABS: ALANINE AMINOTRANSFERASE 37 U/L (3-41); ALBUMIN/GLOBULIN RATIO 0.4 (1.0-2.7); ANION GAP 19 (5-15); ASPARTATE AMINO TRANSFERASE 35 U/L (5-40); CARBON DIOXIDE 20 mEQ/L (20-30); CHLORIDE 95 mEQ/L (98-107); CREATININE 4.5 mg/dL (0.7-1.2); HEMOLYSIS 7; POTASSIUM 5.3 mEQ/L (3.4-4.9); SODIUM 134 mEQ/L (135-145); TOTAL PROTEIN 5.8 g/dL (6.6-8.7)
[2017-03-21] MEDS: NovoLOG Insulin Flexpen SUBQ SCH ×3 (06:47→17:09)
[2017-03-21 08:00] VITALS: BP 120/59
[2017-03-21] MEDS: Zosyn 3.375gm q12h **Extended infusion IVPB SCH ×2 (08:28)
[2017-03-21] MEDS: Theophylline ER 100mg ORAL SCH (08:29)
[2017-03-21] MEDS: Heparin 5000 units/ml inj SUBQ SCH (08:29)
[2017-03-21 08:38] LABS: FREE TRIIODOTHYRONINE 0.8 pg/mL (2.0-4.4)
--- NOTE | 2017-03-21 08:56 | Cardiology Progress Note ---
Assessment/Plan Assessment/Plan The patient is seen and examined, full consult note will be dictated shortly. Objective Last 24 Hour Vital Signs Date Time Temp Pulse Resp B/P Pulse Ox O2 Delivery O2 Flow Rate FiO2 03/21/17 08:00 98.3 100 26 120/59 86 Bi-pap 70 03/21/17 07:42 88 25 93 Facial 70 03/21/17 07:24 88 33 94 Bi-pap 70 03/21/17 07:11 86 30 92 Bi-pap 70 03/21/17 06:56 86 30 92 Facial 70 03/21/17 04:53 84 22 95 Facial 70 03/21/17 04:00 80 03/21/17 04:00 70 03/21/17 04:00 97.4 82 24 135/76 94 Bi-pap 70 03/21/17 02:37 81 19 94 Facial 70 03/21/17 00:44 81 20 94 Bi-pap 70 03/21/17 00:43 80 22 93 Bi-pap 70 03/21/17 00:40 81 20 93 Facial 70 03/21/17 00:00 70 03/21/17 00:00 89 03/21/17 00:00 98.1 88 24 126/72 99 Bi-pap 70 03/20/17 22:43 86 21 94 Facial 70 03/20/17 20:51 98.2 89 27 134/74 97 Bi-pap 70 03/20/17 20:00 70 03/20/17 19:44 89 03/20/17 18:46 88 24 98 Bi-pap 70 03/20/17 18:45 88 22 97 Bi-pap 70 03/20/17 18:43 88 25 97 Facial 70 03/20/17 17:28 90 03/20/17 16:39 84 24 95 Facial 70 03/20/17 16:00 97.7 88 20 135/79 97 Bi-pap 70 03/20/17 16:00 80 03/20/17 14:47 86 22 95 Facial 70 03/20/17 14:06 97.2 87 26 132/83 98 Bi-pap 80 03/20/17 13:57 97.2 87 26 132/83 98 Bi-pap 80 03/20/17 13:51 83 03/20/17 13:28 102 20 98 Bi-pap 70 03/20/17 13:18 83 18 96 Facial 70 03/20/17 13:18 85 18 98 Bi-pap 50 03/20/17 12:00 80 03/20/17 12:00 97.2 87 26 132/83 98 Bi-pap 80 03/20/17 10:53 84 16 96 Facial 80 03/20/17 09:02 82 16 98 Facial 60 Intake and Output 03/20/17 03/21/17 19:00 07:00 Intake Total 382.5 ml 860.0 ml Output Total 550 ml 500 ml Balance -167.5 ml 360.0 ml Intake IV Total 382.5 ml 860.0 ml Output Urine Total 550 ml 500 ml Laboratory Tests Test 03/20/17 09:11 03/20/17 12:55 03/20/17 15:04 03/20/17 15:42 Arterial Blood pH 7.340 (7.350-7.450) Arterial Blood Partial Pressure CO2 40.9 mmHg (35.0-45.0) Arterial Blood Partial Pressure O2 63.4 mmHg (75.0-100.0) L Arterial Blood HCO3 21.6 mmol/L (22.0-26.0) L Arterial Blood Oxygen Saturation 93.1 % (92.0-98.0) Arterial Blood Base Excess -3.9 Jarad Test Positive Sodium Level 129 mEQ/L (135-145) L Potassium Level 5.7 mEQ/L (3.4-4.9) H Chloride Level 88 mEQ/L (98-107) L Carbon Dioxide Level 20 mEQ/L (20-30) Anion Gap 21 (5-15) H Blood Urea Nitrogen 73 mg/dL (7-23) H Creatinine 4.3 mg/dL (0.7-1.2) H Estimat Glomerular Filtration Rate mL/min (>60) Glucose Level 532 mg/dL (74-106) *H Plasma/Serum Osmolality Pending Uric Acid 7.7 mg/dL (3.0-7.5) H Calcium Level 8.0 mg/dL (8.6-10.2) L Phosphorus Level 6.4 mg/dL (2.5-4.8) H Magnesium Level 2.8 mg/dL (1.7-2.5) H Total Bilirubin 0.2 mg/dL (0.0-1.2) Aspartate Amino Transf (AST/SGOT) 26 U/L (5-40) Alanine Aminotransferase (ALT/SGPT) 32 U/L (3-41) Alkaline Phosphatase 117 U/L (40-129) Total Creatine Kinase 28 U/L (38-174) L Total Protein 5.9 g/dL (6.6-8.7) L Albumin 2.1 g/dL (3.5-5.2) L Globulin 3.8 g/dL Albumin/Globulin Ratio 0.5 (1.0-2.7) L Thyroid Stimulating Hormone (TSH) 4.810 uIU/mL (0.300-4.500) Free Thyroxine 0.31 ng/dL (0.86-1.85) L Free Triiodothyronine 0.8 pg/mL (2.0-4.4) L Cortisol Pending Urine Color Pale yellow Urine Appearance Clear Urine pH 5 (4.5-8.0) Urine Specific [place] 1.015 (1.005-1.035) Urine Protein 2+ (NEGATIVE) H Urine Glucose (UA) 4+ (NEGATIVE) H Urine Ketones Negative (NEGATIVE) Urine Occult Blood 3+ (NEGATIVE) H Urine Nitrite Negative (NEGATIVE) Urine Bilirubin Negative (NEGATIVE) Urine Urobilinogen Normal MG/DL (0.0-1.0) Urine Leukocyte Esterase Negative (NEGATIVE) Urine RBC 5-10 /HPF (0 - 0) H Urine WBC 0-2 /HPF (0 - 0) Urine Squamous Epithelial Cells None /LPF (NONE/OCC) Urine Bacteria Few /HPF (NONE) Urine Eosinophils None seen Urine Random Sodium 40 mmol/L Urine Random Chloride 24 mmol/L Urine Potassium Timed 34 mmol/L Urine Osmolality Pending Test 03/20/17 16:15 03/21/17 03:50 Arterial Blood pH 7.313 (7.350-7.450) Arterial Blood Partial Pressure CO2 44.1 mmHg (35.0-45.0) Arterial Blood Partial Pressure O2 75.5 mmHg (75.0-100.0) Arterial Blood HCO3 21.9 mmol/L (22.0-26.0) L Arterial Blood Oxygen Saturation 93.8 % (92.0-98.0) Arterial Blood Base Excess -4.2 Jarad Test Positive White Blood Count 8.7 K/UL (4.8-10.8) Red Blood Count 3.42 M/UL (4.70-6.10) L Hemoglobin 11.0 G/DL (14.2-18.0) L Hematocrit 32.7 % (42.0-52.0) L Mean Corpuscular Volume 96 FL (80-99) Mean Corpuscular Hemoglobin 32.1 PG (27.0-31.0) H Mean Corpuscular Hemoglobin Concent 33.5 G/DL (32.0-36.0) Red Cell Distribution Width 12.3 % (11.6-14.8) Platelet Count 178 K/UL (150-450) Mean Platelet Volume 7.0 FL (6.5-10.1) Neutrophils (%) (Auto) % (45.0-75.0) Lymphocytes (%) (Auto) % (20.0-45.0) Monocytes (%) (Auto) % (1.0-10.0) Eosinophils (%) (Auto) % (0.0-3.0) Basophils (%) (Auto) % (0.0-2.0) Sodium Level 134 mEQ/L (135-145) L Potassium Level 5.3 mEQ/L (3.4-4.9) H Chloride Level 95 mEQ/L (98-107) L Carbon Dioxide Level 20 mEQ/L (20-30) Anion Gap 19 (5-15) H Blood Urea Nitrogen 76 mg/dL (7-23) H Creatinine 4.5 mg/dL (0.7-1.2) H Estimat Glomerular Filtration Rate mL/min (>60) Glucose Level 157 mg/dL (74-106) #H Calcium Level 8.0 mg/dL (8.6-10.2) L Total Bilirubin 0.3 mg/dL (0.0-1.2) Aspartate Amino Transf (AST/SGOT) 35 U/L (5-40) Alanine Aminotransferase (ALT/SGPT) 37 U/L (3-41) Alkaline Phosphatase 126 U/L (40-129) Total Protein 5.8 g/dL (6.6-8.7) L Albumin 1.9 g/dL (3.5-5.2) L Globulin 3.9 g/dL Albumin/Globulin Ratio 0.4 (1.0-2.7) L Microbiology Date/Time Source Procedure Growth Status 03/18/17 17:30 Blood Blood Culture - Preliminary Staphylococcus Sp Coag Neg Resulted 4/29/17 17:15 Blood Blood Culture - Preliminary Staphylococcus Sp Coag Neg Resulted 03/18/17 18:40 Nasal Nares MRSA Culture - Final NO METHICILLIN RESISTANT STAPH AUREUS... Complete GERRY WAGNER March 21, 2017 08:56
--- NOTE | 2017-03-21 09:23 | Diagnostic Imaging Report ---
Indication:Elevated Bun and Creatinine. Technique: Grayscale and duplex Doppler imaging of the kidneys performed. Comparison: None Findings: The size, contour, and echogenicity of both kidneys are within normal limits. There is trace left perinephric fluid demonstrated. There is no hydronephrosis. The IVC and urinary bladder are unremarkable. Smith catheter is noted. The left kidney is between 10 and 11 CM. The right kidney is about 11 cm in length. Impression: No evidence of obstructive nephropathy. Trace left perinephric fluid Smith catheter
[2017-03-21] MEDS: Azithromycin 250mg tab ORAL SCH (10:14)
[2017-03-21] MEDS: Lactulose 20gm/30ml UDC ORAL SCH ×3 (10:14→18:00)
--- NOTE | 2017-03-21 10:47 | Infectious Diseases Prog Note ---
Assessment/Plan Assessment/Plan A: The patient is a 76-year-old male leukocytosis, SP Pneumonia Chest x-ray showed bilateral patchy pneumonia COPD and asthma exacerbation +ve blood cx :CoNS ? contaminant ATN ex-smoker Morbid obesity P: cont pt on Zithro and Zosyn , change Vanco to Zyvox d# 4 / 7 Monitor CBC Monitor BMP Monitor CXray Monitor Cultures ( Ur , Sp ) Rec Nephro consult Subjective Allergies: Coded Allergies: No Known Allergies (Unverified , 03/18/17) Subjective afebrile Objective Vital Signs Last 24 Hour Vital Signs Date Time Temp Pulse Resp B/P Pulse Ox O2 Delivery O2 Flow Rate FiO2 03/21/17 08:00 101 03/21/17 08:00 98.3 100 26 120/59 86 Bi-pap 70 03/21/17 08:00 70 03/21/17 07:42 88 25 93 Facial 70 03/21/17 07:24 88 33 94 Bi-pap 70 03/21/17 07:11 86 30 92 Bi-pap 70 03/21/17 06:56 86 30 92 Facial 70 03/21/17 04:53 84 22 95 Facial 70 03/21/17 04:00 80 03/21/17 04:00 70 03/21/17 04:00 97.4 82 24 135/76 94 Bi-pap 70 03/21/17 02:37 81 19 94 Facial 70 03/21/17 00:44 81 20 94 Bi-pap 70 03/21/17 00:43 80 22 93 Bi-pap 70 03/21/17 00:40 81 20 93 Facial 70 03/21/17 00:00 70 03/21/17 00:00 89 03/21/17 00:00 98.1 88 24 126/72 99 Bi-pap 70 03/20/17 22:43 86 21 94 Facial 70 03/20/17 20:51 98.2 89 27 134/74 97 Bi-pap 70 03/20/17 20:00 70 03/20/17 19:44 89 03/20/17 18:46 88 24 98 Bi-pap 70 03/20/17 18:45 88 22 97 Bi-pap 70 03/20/17 18:43 88 25 97 Facial 70 03/20/17 17:28 90 03/20/17 16:39 84 24 95 Facial 70 03/20/17 16:00 97.7 88 20 135/79 97 Bi-pap 70 03/20/17 16:00 80 03/20/17 14:47 86 22 95 Facial 70 03/20/17 14:06 97.2 87 26 132/83 98 Bi-pap 80 03/20/17 13:57 97.2 87 26 132/83 98 Bi-pap 80 03/20/17 13:51 83 03/20/17 13:28 102 20 98 Bi-pap 70 03/20/17 13:18 83 18 96 Facial 70 03/20/17 13:18 85 18 98 Bi-pap 50 03/20/17 12:00 80 03/20/17 12:00 97.2 87 26 132/83 98 Bi-pap 80 03/20/17 10:53 84 16 96 Facial 80 Height (Feet): 5 Height (Inches): 4.00 Weight (Pounds): 220 HEENT: atraumatic Respiratory/Chest: lungs clear Cardiovascular: regular rhythm Microbiology Date/Time Source Procedure Growth Status 03/18/17 17:30 Blood Blood Culture - Preliminary Staphylococcus Sp Coag Neg Resulted 03/18/17 17:15 Blood Blood Culture - Preliminary Staphylococcus Sp Coag Neg Resulted 03/18/17 18:40 Nasal Nares MRSA Culture - Final NO METHICILLIN RESISTANT STAPH AUREUS... Complete 03/18/17 18:40 Rectum VRE Culture - Final Enterococcus Faecalis - Vre Complete Laboratory Tests Test 03/20/17 12:55 03/20/17 15:04 03/20/17 15:42 03/20/17 16:15 Sodium Level 129 mEQ/L (135-145) L Potassium Level 5.7 mEQ/L (3.4-4.9) H Chloride Level 88 mEQ/L (98-107) L Carbon Dioxide Level 20 mEQ/L (20-30) Anion Gap 21 (5-15) H Blood Urea Nitrogen 73 mg/dL (7-23) H Creatinine 4.3 mg/dL (0.7-1.2) H Estimat Glomerular Filtration Rate mL/min (>60) Glucose Level 532 mg/dL (74-106) *H Plasma/Serum Osmolality Pending Uric Acid 7.7 mg/dL (3.0-7.5) H Calcium Level 8.0 mg/dL (8.6-10.2) L Phosphorus Level 6.4 mg/dL (2.5-4.8) H Magnesium Level 2.8 mg/dL (1.7-2.5) H Total Bilirubin 0.2 mg/dL (0.0-1.2) Aspartate Amino Transf (AST/SGOT) 26 U/L (5-40) Alanine Aminotransferase (ALT/SGPT) 32 U/L (3-41) Alkaline Phosphatase 117 U/L (40-129) Total Creatine Kinase 28 U/L (38-174) L Total Protein 5.9 g/dL (6.6-8.7) L Albumin 2.1 g/dL (3.5-5.2) L Globulin 3.8 g/dL Albumin/Globulin Ratio 0.5 (1.0-2.7) L Thyroid Stimulating Hormone (TSH) 4.810 uIU/mL (0.300-4.500) Free Thyroxine 0.31 ng/dL (0.86-1.85) L Free Triiodothyronine 0.8 pg/mL (2.0-4.4) L Cortisol Pending Urine Color Pale yellow Urine Appearance Clear Urine pH 5 (4.5-8.0) Urine Specific [place] 1.015 (1.005-1.035) Urine Protein 2+ (NEGATIVE) H Urine Glucose (UA) 4+ (NEGATIVE) H Urine Ketones Negative (NEGATIVE) Urine Occult Blood 3+ (NEGATIVE) H Urine Nitrite Negative (NEGATIVE) Urine Bilirubin Negative (NEGATIVE) Urine Urobilinogen Normal MG/DL (0.0-1.0) Urine Leukocyte Esterase Negative (NEGATIVE) Urine RBC 5-10 /HPF (0 - 0) H Urine WBC 0-2 /HPF (0 - 0) Urine Squamous Epithelial Cells None /LPF (NONE/OCC) Urine Bacteria Few /HPF (NONE) Urine Eosinophils None seen Urine Random Sodium 40 mmol/L Urine Random Chloride 24 mmol/L Urine Potassium Timed 34 mmol/L Urine Osmolality Pending Arterial Blood pH 7.313 (7.350-7.450) Arterial Blood Partial Pressure CO2 44.1 mmHg (35.0-45.0) Arterial Blood Partial Pressure O2 75.5 mmHg (75.0-100.0) Arterial Blood HCO3 21.9 mmol/L (22.0-26.0) L Arterial Blood Oxygen Saturation 93.8 % (92.0-98.0) Arterial Blood Base Excess -4.2 Jarad Test Positive Test 03/21/17 03:50 White Blood Count 8.7 K/UL (4.8-10.8) Red Blood Count 3.42 M/UL (4.70-6.10) L Hemoglobin 11.0 G/DL (14.2-18.0) L Hematocrit 32.7 % (42.0-52.0) L Mean Corpuscular Volume 96 FL (80-99) Mean Corpuscular Hemoglobin 32.1 PG (27.0-31.0) H Mean Corpuscular Hemoglobin Concent 33.5 G/DL (32.0-36.0) Red Cell Distribution Width 12.3 % (11.6-14.8) Platelet Count 178 K/UL (150-450) Mean Platelet Volume 7.0 FL (6.5-10.1) Neutrophils (%) (Auto) % (45.0-75.0) Lymphocytes (%) (Auto) % (20.0-45.0) Monocytes (%) (Auto) % (1.0-10.0) Eosinophils (%) (Auto) % (0.0-3.0) Basophils (%) (Auto) % (0.0-2.0) Sodium Level 134 mEQ/L (135-145) L Potassium Level 5.3 mEQ/L (3.4-4.9) H Chloride Level 95 mEQ/L (98-107) L Carbon Dioxide Level 20 mEQ/L (20-30) Anion Gap 19 (5-15) H Blood Urea Nitrogen 76 mg/dL (7-23) H Creatinine 4.5 mg/dL (0.7-1.2) H Estimat Glomerular Filtration Rate mL/min (>60) Glucose Level 157 mg/dL (74-106) #H Calcium Level 8.0 mg/dL (8.6-10.2) L Total Bilirubin 0.3 mg/dL (0.0-1.2) Aspartate Amino Transf (AST/SGOT) 35 U/L (5-40) Alanine Aminotransferase (ALT/SGPT) 37 U/L (3-41) Alkaline Phosphatase 126 U/L (40-129) Total Protein 5.8 g/dL (6.6-8.7) L Albumin 1.9 g/dL (3.5-5.2) L Globulin 3.9 g/dL Albumin/Globulin Ratio 0.4 (1.0-2.7) L Current Medications Medications (Trade) Dose Ordered Sig/Gabe Route PRN Reason Start Time Stop Time Status Last Admin Dose Admin Albuterol/ Ipratropium (DuoNeb 0.5-3(2.5)mg/3ml) 3 ml Q4H PRN HHN DYSPNEA 03/18/17 20:30 03/23/17 20:29 Albuterol/ Ipratropium (DuoNeb 0.5-3(2.5)mg/3ml) 3 ml Q6HRT HHN 03/19/17 13:00 03/24/17 12:59 03/21/17 07:11 Azithromycin (Zithromax) 500 mg Q24H ORAL 03/19/17 10:00 03/26/17 09:59 03/21/17 10:14 Dextrose (Dextrose 50%) STAT PRN IV Hypoglycemia 03/18/17 20:30 04/17/17 20:29 Heparin Sodium (Porcine) (Heparin 5000 units/ml) 5,000 units EVERY 12 HOURS SUBQ 03/18/17 21:00 04/17/17 20:59 03/21/17 08:29 Insulin Aspart BEFORE MEALS AND HS SUBQ 03/20/17 11:30 04/19/17 11:29 03/21/17 06:47 Lactulose (Cephulac) 30 gm THREE TIMES A DAY ORAL 03/21/17 09:30 03/22/17 09:29 03/21/17 10:14 Lorazepam (Ativan 2mg/ml 1ml) 0.5 mg Q4H PRN IV For Anxiety 03/18/17 20:30 03/25/17 20:29 Morphine Sulfate (Morphine Sulfate) 2 mg Q4H PRN IVP Severe Pain (Pain Scale 7-10) 03/18/17 20:30 03/25/17 20:29 Ondansetron HCl (Zofran) 4 mg Q6H PRN IVP Nausea & Vomiting 03/18/17 20:30 04/17/17 20:29 03/19/17 10:10 Piperacillin Sod/ Tazobactam Sod/ Dextrose (Zosyn/D5W) 110 ml @ 27.5 mls/hr EVERY 12 HOURS IVPB 03/20/17 21:00 03/25/17 20:59 03/21/17 08:28 Promethazine HCl/ Codeine (Phenergan with Codeine) 5 ml Q6H PRN ORAL For Cough 03/18/17 20:30 04/17/17 20:29 Sodium Chloride 1,000 ml @ 75 mls/hr [id number] IV 03/20/17 13:00 04/19/17 12:59 03/20/17 14:56 Temazepam (Restoril) 15 mg HSPRN PRN ORAL Insomnia 03/18/17 21:00 03/25/17 20:59 03/19/17 21:46 Theophylline (Dale-Dur) 100 mg EVERY 12 HOURS ORAL 03/18/17 21:00 04/17/17 20:59 03/21/17 08:29 Vancomycin HCl (Vanco rx to dose) 1 ea DAILY PRN MISC Per rx protocol 03/20/17 14:00 04/19/17 13:59 KEILA TILLMAN M.D. March 21, 2017 10:47
[2017-03-21 12:00] VITALS: BP 127/76
--- NOTE | 2017-03-21 13:07 | Diagnostic Imaging Report ---
Indication: Dyspnea Comparison: None A single view chest radiograph was obtained. Findings: Patchy extensive infiltrates noted bilaterally. Findings are unchanged. Lung volumes remain low. Heart is enlarged. Impression: No significant change from the prior day
--- NOTE | 2017-03-21 14:29 | Consultation ---
DATE OF CONSULTATION: 03/21/2017 PULMONARY CONSULTATION/HISTORY AND PHYSICAL: HISTORY OF PRESENT ILLNESS: This is a an elderly obese male, who presented to the hospital with dyspnea. The patient states a longstanding history of asthma and COPD. Apparently, he also had chest discomfort. He has been intubated in the past as well. The patient was seen and worked up initially by Dr. Womack. However, once the patient is on transferred to myself. The patient is on a BiPAP for the last 24 hours. This morning, he was able to eat briefly, however, became too dyspneic. PAST MEDICAL HISTORY: Notable for asthma, COPD, and hypertension. There is no history of renal disease. MEDICATIONS: His present medications include Zosyn, vancomycin, subcutaneous insulin, breathing treatments, theophylline, Restoril, and magnesium. ALLERGIES: None reported. REVIEW OF SYSTEMS: Unreliable. PHYSICAL EXAMINATION: GENERAL: Reveals an obese male. HEENT: Unremarkable. BiPAP is in place. CHEST: Diffuse breath sounds bilaterally, basilar crackles. HEART: Heart sounds are normal. ABDOMEN: Distended. EXTREMITIES: There is no edema. LABORATORY AND DIAGNOSTIC DATA: Laboratory testing shows hemoglobin of 11 and white count of 8.7. Creatinine 4.5 and glucose 157. Calcium 8. ProBNP has not been obtained, was on arrival. Potassium 5.2, creatinine 4.5, and BUN 76. Albumin 0.9 ABG, pH 7.31, pCO2 44, and pO2 75. IMPRESSION: 1. Acute respiratory failure. 2. Bilateral severe pneumonia. 3. Acute renal failure. 4. History of asthma/chronic obstructive pulmonary disease. 5. Previous intubation. DISCUSSION: The patient status critically ill. His blood culture drawn Streptococcus may be contaminant. I concur with the use of IV antibiotics which include Zosyn and vancomycin. ID specialist also following. We will consult Nephrology. I will at this time discontinue IV steroids. I suspect he has a severe pneumonia. We will continue carefully as rails developer. We will consult Endocrinology, Cardiology, and Nephrology. Eh Day M.D. DR: Isac JOB#: [id number] CC:
[2017-03-21 16:00] VITALS: BP 96/57
[2017-03-21] MEDS ORDERED: Tubing IV Secondary IV ONE ×2 (17:52→19:19)
[2017-03-21] MEDS ORDERED: NS 275ml ONE (17:52)
[2017-03-21 20:00] VITALS: BP 101/67
[2017-03-21] MEDS ORDERED: Levemir Flexpen SUBQ SCH (21:00)
--- NOTE | 2017-03-21 22:27 | Emergency Room Report ---
History of Present Illness General Chief Complaint: Dyspnea/Respdistress Source: Patient Present Illness Allergies: Coded Allergies: No Known Allergies (Unverified , 03/18/17) Nursing Documentation-[facility] Hx Cardiac Problems: No Hx Asthma: Yes Hx COPD: Yes Hx Cancer: No Hx Gastrointestinal Problems: Yes Hx Neurological Problems: No Physical Exam Vital Signs Date Time Temp Pulse Resp B/P Pulse Ox O2 Delivery O2 Flow Rate FiO2 03/18/17 17:06 97.0 102 22 156/84 94 Simple Mask 8.0 03/18/17 17:17 60 Procedures Critical Care Time Critical Care Time i. I feel this is a highly complex case requiring extensive working including EKG/Rhythm strip, Xray/CT/US, Blood/urine lab work, repeat exams while in ED, and administration of strong opiates/narcotics for pain control, admission to hospital or close patient follow up. Total time: 30 min bedside evaluation and treatment excludes procedures (EKG). Reason for critical care: respiratory arrest, cardiac arrest Possible complications: hypotension, hypertension, CO, shock, arrhythmias, metabolic acidosis, end organ damage, respiratory failure. Interventions: Cardiac compressions, ACLS protocol, intubation Course: Patient became unresponsive while on BiPAP. History of COPD. Patient possibly aspirated. In PEA on arrival. Compression started. Patient intubated. Given calcium and bicarbonate. Accu-Chek within normal limits. Multiple rounds of epinephrine and compressions. No signs of recovery. Prognosis is poor. Efforts terminated. Patient expires Consultations: nursing staff, EMS, family Performed by: Dr Casillas Tolerated well condition = j. because of unstable vital signs this patient had a condition that could potentially threaten life or limb. I feel this is a critical patient who required my full attention while patient was considered critical. Total Critical Care Time excluding procedures was greater than 35 minutes CPR/Code Blue CPR/Code Blue Narrative Patient had witnessed respiratory arrest while on BiPAP. Possible aspiration. Patient lost pulses. CPR in progress upon my arrival. Initial rhythm is PEA. Patient started on epinephrine. Given calcium and bicarbonate. Patient was intubated. Despite multiple rounds of CPR and epinephrine patient remains in PEA. Prognosis is poor. Resuscitative efforts terminated. Patient expires Intubation Intubation : Consent: Emergent Intubation Method: orotracheal Tube Size (cm): 7.5 Medications: Etomidate, Rocuronium Breath Sounds after Intubation: equal Intubation Complications: no complications Post Intubation Xray: No Attempts: One Patient Tolerated: Well Complications: Other - patient expires Medical Decision Making Diagnostic Impression: Primary Impression: Respiratory distress Additional Impressions: Bilateral pulmonary infiltrates on chest x-ray Bronchospasm Hypoxia Mixed acidosis ER Course I was called to the CODE [facility]. Patient apparently went into cardiac arrest while on BiPAP. Possible aspiration witnessed. Initial rhythm was PEA. Chest compressions started. Accu-Chek within normal limits. Given calcium and bicarbonate. Given epinephrine. Patient intubated. Multiple rounds of epinephrine and compressions patient remains in PEA. Prognosis is poor. Resuscitative efforts terminated patient expires Last Vital Signs Date Time Temp Pulse Resp B/P Pulse Ox O2 Delivery O2 Flow Rate FiO2 03/21/17 16:54 94 21 92 Full Face 80 03/21/17 16:00 98.1 96/57 03/19/17 01:00 10.0 Status: worsened Disposition: Condition: Referrals: NON PHYSICIAN (PCP) MARIA ALEJANDRA CASILLAS M.D. March 21, 2017 22:27
--- NOTE | 2017-03-22 03:28 | Consultation ---
DATE OF CONSULTATION: 03/21/2017 CONSULTING PHYSICIAN: Lm Nobles M.D. REFERRING PHYSICIAN: Eh Day M.D. REASON FOR CONSULTATION: Management of shortness of breath from cardiac standpoint. HISTORY OF PRESENT ILLNESS: The patient is a very pleasant 76-year-old gentleman, who presents to this facility with complaints of severe dyspnea. This patient was brought in by paramedics after the patient started to have wheezing and shortness of breath. The patient has history of COPD. He was started on Zosyn this morning for treatment of pneumonia. Next, on arrival to this hospital, initial blood pressure was 156/84, heart rate was 102, and temperature was 97 degrees Fahrenheit. A 12-lead electrocardiogram was significant for sinus tachycardia. The patient was admitted to [facility] for further evaluation and assessment. There is no prior history of coronary artery disease or congestive heart failure according to the records. PAST MEDICAL HISTORY: Includes history of cardiac problems, history of asthma/chronic obstructive pulmonary disease, and history of gastroesophageal reflux disease. PAST SURGICAL HISTORY: None. SOCIAL HISTORY: Unknown if the patient ever smoked in the past 12 months. There is no history of alcohol or illicit drug use. MEDICATIONS: List of medications in the rehab where the patient resides includes acetaminophen 650 mg q.4 h. p.r.n. fever and headaches, DuoNeb inhaler 3 mL every four hours, and Zosyn 3.375 g IV piggyback every six hours. REVIEW OF SYSTEMS: A 12-system review was done, essentially negative except what mentioned in the history of present illness. ALLERGIES: No known drug allergies. PHYSICAL EXAMINATION: VITAL SIGNS: Blood pressure is 156/84, respirations 22, pulse of 102, temperature 97 degrees Fahrenheit, and O2 saturation 94%. GENERAL: The patient is a very pleasant 76-year-old gentleman, currently on BiPAP mask, in [id number] respiratory distress. HEENT: Atraumatic and normocephalic. Anicteric. Pupils are equal, round, and reactive to light and accommodation. Extraocular muscles are intact. NECK: JVP cannot be assessed. No carotid bruits. Carotid upstroke is 2+ bilaterally. CARDIOVASCULAR: Normal S1 and S2. Tachycardic. No murmurs, gallops, or rubs. LUNGS: Anterior segment shows respiratory rhonchi and posterior lung shows bibasilar crackle. ABDOMEN: Soft, nontender, and nondistended. No hepatosplenomegaly. Positive bowel sounds. EXTREMITIES: No evidence of edema, clubbing, or cyanosis. IMAGING DATA: Chest x-ray shows extensive bilateral pulmonary parenchymal mixed interstitial and airspace disease, nonspecific; cardiogenic versus noncardiogenic pulmonary edema and diffuse pneumonitis; multifocal tonsillar hemorrhage; metastatic neoplasm; chronic interstitial fibrotic disease/fibrosis or combination of any of these; and cardiac silhouette is within normal limits. 12-lead electrocardiogram shows sinus tachycardia at rate of [address] and T-wave abnormalities. LABORATORY FINDINGS: WBC 20.3, hemoglobin 13.1, hematocrit of 36.6, and platelet count is 167,000 with 11% bandemia left shift and neutrophils of 82%. Chemistry shows sodium 134, potassium is 4.9, chloride 93, bicarbonate is 25, BUN of 14, creatinine 1.0, glucose is 215, and calcium is 8.4. Troponin I is less than 0.3. ProBNP was 210. Blood gas on arrival pH of 7.345, pCO2 of 46.5, PaO2 of 64, HCO2 of 24.8, and O2 saturation of 81%. INR was 1.0. ASSESSMENT AND PLAN: The patient is a very unfortunate 76-year-old gentleman seen in Cardiology consultation at request of Dr. Day. 1. Dyspnea. After review of the all data, it appears that the patient has infection, likely bilateral pneumonia as there is evidence of leukocytosis with left shift including bandemia. There is also hypoxic/hypercapnic respiratory failure, which is commonly seen with heart failure. If this be heart failure, hypoxic respiratory failure would be most likely the mechanism for respiratory failure. of BNP to this level was not explained and massive infiltration of both lungs either. The patient also has suffered from sepsis syndrome with involvement of renal function. I would like to consider steroid in addition to antibiotic therapy. Continuation of oxygen per Pulmonary recommendation. We will obtain 2D echocardiography for assessment of systolic and diastolic function. Further therapeutic and diagnostic decision will be based on the results of the echocardiography. 2. Possible bilateral pneumonia, on intravenous antibiotic therapy. 3. History of chronic obstructive pulmonary disease. 4. Morbid obesity. I would like to thank, Dr. Day for allowing me to participate in the care of this patient. Lm Nobles M.D. DR: RAÚL JOB#: [id number] CC:
--- NOTE | 2017-03-22 19:21 | Discharge Summary ---
Discharge Summary Hospital Course Date of Admission Mar 18, 2017 at 18:28 Date of Discharge March 21, 2017 at 19:20 Admitting Diagnosis COPD exacerbation HPI Theodore Kwon is a 76 year old male who was admitted on Mar 18, 2017 at 18:28 for Copd Exacerbation Hospital Course [id number] Discharge Discharge Disposition Patient Discharge Diagnoses: Pari Armstrong NP March 22, 2017 19:21
--- NOTE | 2017-03-23 02:08 | Discharge Summary 2 SIG ---
DATE OF ADMISSION: 03/18/2017 DATE OF DISCHARGE: 03/21/2017 SUMMARY CONSULTANTS: 1. Lm Nobles M.D. 2. Thien Villaseñor M.D. 3. Gaby Womack M.D. BRIEF HOSPITAL COURSE: The patient is a 76-year-old elderly obese male, who presented to the hospital with dyspnea. The patient has longstanding history of asthma and chronic obstructive pulmonary disease. Apparently, he had chest discomfort. He was initially admitted under the service of Dr. Womack. On evaluation at ED, the patient was in respiratory distress and had to be placed on BiPAP secondary to severe hypoxemia and mild hypercapnia. Chest x-ray showed bilateral infiltrates. Initial EKG was negative. EKG showed sinus rhythm with no ischemic changes. He was given bronchodilator therapy and was initially started on loading dose of steroids and was admitted to [facility]. He was followed by Infectious Disease consult, initially was placed on Zosyn and Zithromax. Blood culture showed growth of Staphylococcus, coagulase negative Staph. The patient was given Zyvox. He was seen by Dr. Nobles for evaluation of shortness of breath from cardiac standpoint and assessed dyspnea most likely secondary to pneumonia. He had worsening renal failure, came in with creatinine 1.0, nini to 4.5. On 03/21/2017, code Blue was called. Resuscitative efforts failed and the patient . FINAL DIAGNOSES: 1. Acute respiratory failure. 2. Bilateral severe pneumonia. 3. Acute renal failure 4. Acute tubular necrosis. 5. Asthma/chronic obstructive pulmonary disease. 6. Morbid obesity. Eh Day M.D. I have been assigned to dictate discharge summary on this account and I was not involved in the patient's management. Pari Armstrong N.P. DR: ALBINO JOB#: [id number] CC: ALONZO
== END 2017-03-21 19:20 | disposition expired | DRG 193 ==
LOC: EDBD 17:10 → EMR 18:27 → 2W 18:28 → EDBEDREQ 22:31
PROC: 5A09457 Assistance with Respiratory Ventilation, 24-96 Consecutive Hours, Continuous Positive Airway Pressure (ICD-10-PCS; principal; 2017-03-18)
DX: J18.9 Pneumonia, unspecified organism (principal); J96.01 Acute respiratory failure with hypoxia; N17.0 Acute kidney failure with tubular necrosis; J96.02 Acute respiratory failure with hypercapnia; J44.1 Chronic obstructive pulmonary disease with (acute) exacerbation; E66.01 Morbid (severe) obesity due to excess calories; I10 Essential (primary) hypertension; Z87.891 Personal history of nicotine dependence; R73.9 Hyperglycemia, unspecified; K21.9 Gastro-esophageal reflux disease without esophagitis; Z79.4 Long term (current) use of insulin
CPT/HCPCS: 36415; 36600; 71010; 76775; 80048; 80053; 81001; 81003; 82436; 82533; 82550; 82803; 82947; 82962; 83036; 83605; 83735; 83880; 83930; 83935; 84100; 84133; 84300; 84439; 84443; 84481; 84484; 84550; 85007; 85025; 85610; 85730; 87040; 87081; 87181; 89050; 92950; 93005; 93306; 94640; 94660; 94664; J1815; J2405; J7620; S5561